=== PATIENT | female | born 1980 | race Caucasian/White ===

== ENCOUNTER → 2022-08-03 23:13 | Outpatient (CLI) | payer MEDICAID, SELFPAY ==
[2022-08-03 18:50] LABS: Basophils # 0.1 K/mm3 (0-0.2); Basophils % 0.9 % (0.1-2.0); Eosinophils # 0.5 K/mm3 (0.0-0.4); Eosinophils % 4.9 % (0.1-12.0); Hematocrit 43.2 % (37.0-47.0); Hemoglobin 14.3 g/dL (12.2-16.2); Lymphocytes # 2.1 K/mm3 (0.7-4.5); Mean Corpuscular Hemoglobin 30.7 pg (27.0-31.2); Mean Corpuscular Volume 92.9 fl (81-99); Mean Platelet Volume 9.1 fl (7.4-10.4); Monocytes # 0.8 K/mm3 (0.1-1.0); Monocytes % 8.4 % (1.7-9.3); Neutrophils # 5.8 K/mm3 (1.8-7.8); Neutrophils % 62.8 % (37.0-80.0); Platelet Count 324 K/mm3 (142-424); Red Blood Count 4.64 M/mm3 (4.20-5.40); Red Cell Distribution Width 12.3 % (11.5-17.5); White Blood Count 9.2 K/mm3 (4.8-10.8)
[2022-08-03 18:53] LABS: Alanine Aminotransferase 43 U/L (12-78); Albumin Level 4.4 g/dl (3.5-5.0); Albumin/Globulin Ratio 1.4 (1.1-1.8); Alkaline Phosphatase 93 U/L (38-126); Anion Gap 15.2 mEq/L (5-15); Aspartate Amino Transferase 34 U/L (14-36); Bilirubin,Total 0.5 mg/dl (0.2-1.3); Blood Urea Nitrogen 13 mg/dl (7-17); Calcium 9.3 mg/dl (8.4-10.2); Carbon Dioxide 28 mmol/L (22.0-30.0); Chloride 99 mmol/L (98-107); Chol/HDL Ratio 4.6 (1-3.5); Cholesterol 300 mg/dl (140-200); Estimated Glomerular Filt Rate 111 ml/min (>60); GFR (African American) 134 ML/MIN (>60); Globulin 3.1 g/dL (1.3-3.2); Glucose 85 mg/dl (74-100); HDL Cholesterol 65 mg/dl (40-60); Potassium 4.2 mmoL/L (3.5-5.1); Sodium 138 mmol/L (136-145); Total Protein,Serum 7.5 g/dl (6.3-8.2); Triglycerides 147 mg/dl (30-150); VLDL Cholesterol 29 mg/dL (0-40)
[2022-08-03 19:07] LABS: Hemoglobin A1C 5.1 % (4.0-6.0)
[2022-08-03 19:08] LABS: C-Reactive Protein 4.7 mg/L (0-4); Direct LDL Cholesterol 176.75 mg/dL (100-129)
[2022-08-03 19:12] LABS: 25-OH Vitamin D, Total 18.1 ng/mL (30-100)
[2022-08-03 19:43] LABS: Vitamin B12 362 pg/mL (239-931)
[2022-08-03 20:57] LABS: Erythrocyte Sedimentation Rate 18 mm/hr (0-20)
[2022-08-07 15:29] LABS: EBV Ab VCA, IgG >600.0 U/mL (0.0-17.9); EBV Ab VCA, IgM <36.0 U/mL (0.0-35.9)
== END ==
PROVIDERS: PCP Nurse Practitioner; Visit Provider Nurse Practitioner
DX: R53.83 Other fatigue (principal); R63.5 Abnormal weight gain; E55.9 Vitamin D deficiency, unspecified
CPT/HCPCS: 80053; 80061; 82306; 82607; 83036; 84443; 85025; 85651; 86140; 86664; 86665

== ENCOUNTER 2023-02-09 18:04 | Emergency (ER) | payer MEDICAID, SELFPAY ==
[2023-02-09 18:10] VITALS: BP 128/93; PULSE 92; RESP 20; TEMP 37.2; O2SAT 95; BMI 33.7
--- NOTE | 2023-02-09 18:14 | ED_ITS ---
Discharge Plan Disposition Patient Disposition: Home, Self-Care Condition: Good Prescriptions Prescriptions: New methylprednisolone 4 mg Tablets,Dose Pack 4 mg PO DIRECTED 6 Days Qty: 21 0RF Rx Instructions: Take 1 pack as directed for 6 days promethazine-DM 6.25-15 mg/5 mL Syrup 5 ml PO Q6H PRN (Reason: Cough) Qty: 240 0RF amoxicillin-pot clavulanate 875-125 mg Tablet 1 tab PO Q12H Qty: 20 0RF No Action semaglutide 0.25 mg or 0.5 mg (2 mg/3 mL) pen injector 0.25 mg SQ WEEKLY Rx Instructions: for 4 weeks Mirena 21 mcg/24 hours (8 yrs) 52 mg intrauterine device 1 device intrauterine ONCE prednisone 20 mg tablet 20 mg PO .COMPLEX Qty: 15 0RF Rx Instructions: 20 mg orally BID x 5 days then daily x 5 days cefdinir 300 mg capsule 300 mg PO BID Qty: 20 0RF cybhvztogtkvbow-bsbtcgwua-UN [Bromfed DM] 2-30-10 mg/5 mL syrup 5 ml PO Q4-6H PRN (Reason: cold symptoms) Qty: 240 0RF albuterol sulfate 90 mcg/actuation HFA aerosol inhaler 2 puff inhalation Q4-6H PRN (Reason: shortness of breath or wheezing) Qty: 8.5 0RF phentermine 37.5 mg Tablet 37.5 mg PO DAILY Rx Instructions: must administer 30 minutes before or 1-2 hours after breakfast Referrals Follow up/Referrals: Nevin Nj APRN [Primary Care Provider] - See instructions Activity Restrictions/Add. Instructions Additional Instructions/Restrictions: Drink plenty of fluids. Take tylenol or ibuprofen for pain or fever. Stop the cefdinir that you are on and start the new antibiotic (amoxicillin/clavulanate). Start the oral steroids (methyprednisone) in the morning since you had the shot here today. Follow up with your regular doctor. GO TO THE ER FOR ANY WORSENING SYMPTOMS The cough medication (promethazine dm) will make you drowsy, so don't drive or operate heavy machinery after taking it. Clinical Impressions Clinical Impression: Acute bronchitis Instructions Patient Instructions: DI for Acute Bronchitis, Ceftriaxone Injection, Dexamethasone Injection Discharge ED Provider: Jagdeep Kruse [facility] HPI General Stated complaint: congestion, cough Time Seen by Provider: 02/09/23 18:14 History of Present Illness Provider Complaint: She states that for the past 5 days she has had chest congestion, sinus congestion, fever, chills, and malaise. She saw her pcp when her symptoms began and she was prescribed cefdinir. She states that she is not feeling any better since starting the medication. Related Data Home Medications Medication Instructions Recorded Confirmed levonorgestrel 21 mcg/24 hours (8 1 device intrauterine ONCE 11/09/22 02/09/23 yrs) 52 mg intrauterine device (Mirena) semaglutide 0.25 mg or 0.5 mg (2 0.25 mg SQ WEEKLY 01/02/23 02/09/23 mg/3 mL) subcutaneous pen injector phentermine 37.5 mg tablet 37.5 mg PO DAILY 02/09/23 02/09/23 Previous Rx's Medication Instructions Recorded albuterol sulfate 90 mcg/actuation 2 puff inhalation Q4-6H PRN 02/06/23 aerosol inhaler shortness of breath or wheezing #8.5 grams vvawlqqqhycefuu-cxvproxsisztzsv-OD 5 ml PO Q4-6H PRN cold symptoms 02/06/23 2 mg-30 mg-10 mg/5 mL oral syrup #240 mL (Bromfed DM) cefdinir 300 mg capsule 300 mg PO BID #20 caps 02/06/23 prednisone 20 mg tablet 20 mg PO .COMPLEX #15 tabs 02/06/23 amoxicillin 875 mg-potassium 1 tab PO Q12H #20 tabs 02/09/23 clavulanate 125 mg tablet methylprednisolone 4 mg tablets in 4 mg PO DIRECTED 6 days #21 tabs 02/09/23 a dose pack promethazine-DM 6.25 mg-15 mg/5 mL 5 ml PO Q6H PRN Cough #240 mL 02/09/23 oral syrup Allergies Allergy/AdvReac Type Severity Reaction Status Date / Time No Known Allergies Allergy Verified 02/06/23 14:28 [facility] Disclaimer: The information contained in this section may have been updated after the patient was seen, as this information can be updated by other users. Medical History Encounter for insertion of mirena IUD 12/05/22 Fatigue Weight gain Surgical History No significant past surgical history Family History Other Cancer Coronary artery disease Diabetes FHx: mental illness Heart attack Hyperlipidemia Hypertension Stroke Substance abuse Social History Smoking Status: Never smoker alcohol intake: never substance use type: marijuana current occupational status: employed Travel in the last 8 weeks: None ROS Obtained: Yes All systems reviewed & no additional complaints except as documented Constitutional Constitutional: Reports chills and Reports fever(s) Eyes Eyes: Denies eye discharge ENT Ears, Nose, Mouth, and Throat: Reports as per HPI Cardiovascular Cardiovascular: Denies chest pain Respiratory Respiratory: Denies shortness of breath, Reports chest congestion, Reports cough, Denies stridor and Denies wheezing Gastrointestinal Gastrointestingal: Reports nausea; Denies abdominal pain, constipation, cr amping, diarrhea or vomiting Musculoskeletal Musculoskeletal: Denies arthralgias Integumentary/Breasts Skin/Breast: Denies rash Neurologic Neurologic: Denies paresthesias Allergic/Immunologic Allergic/Immunologic: Denies wheezing Physical Exam General General appearance: alert and in no apparent distress Eye Eye exam: Present normal appearance, PERRL and EOMI ENT ENT exam: Present mucous membranes moist and normal external ear exam Expanded ENT Exam External ear exam: Present normal external inspection TM/Canal exam: Bilateral TM: erythema and bulging Nose exam: Absent sinus tenderness Nasal speculum exam: Bilateral: normal Mouth exam: Present normal external inspection; Absent drooling Teeth exam: Present normal inspection Throat exam: Present tonsillar erythema and tonsillomegaly Neck Neck exam: Present normal inspection, full ROM and trachea midline; Absent tenderness, lymphadenopathy or thyromegaly Chest Chest inspection: Present normal inspection and symmetric chest wall rise; Absent tenderness or rash Respiratory Respiratory exam: Present normal lung sounds bilaterally; Absent respiratory distress, wheezes, stridor or accessory muscle use Cardiovascular Cardiovascular exam: Present regular rate, normal rhythm and normal heart sounds Abdominal Exam Abdominal exam: Present soft; Absent distention, tenderness, guarding, rebound or rigidity Extremities Exam Extremities exam: Present normal inspection, full ROM and normal capillary refill; Absent tenderness or calf tenderness Back Exam Back exam: Present normal inspection and full ROM; Absent tenderness Neurological Exam Neurological exam: Present alert and oriented X3 Psychiatric Psychiatric exam: Present normal affect and normal mood Skin Skin exam: Present warm, dry, intact and normal color Lymphatic Lymphatic Findings: no adenopathy Medical Decision Making Medical Records Medical records reviewed: No I reviewed the patient's medical records. Jonah Inquiry Pt receiving controlled substance: No Lab Data Lab results reviewed: Yes I reviewed the patient's lab results.
--- NOTE | 2023-02-09 18:17 | XR_ITS ---
PROCEDURE INFORMATION: Exam: XR Chest Exam date and time: 02/09/2023 6:17 PM Age: 42 years old Clinical indication: Cough TECHNIQUE: Imaging protocol: Radiologic exam of the chest. Views: 2 views. COMPARISON: No relevant prior studies available. FINDINGS: Lungs: Unremarkable. No consolidation. Pleural spaces: Unremarkable. No pleural effusion. No pneumothorax. Heart/Mediastinum: Unremarkable. No cardiomegaly. Bones/joints: Unremarkable. Soft tissues: Bilateral nipple adornments. IMPRESSION: No acute findings.
[2023-02-09] MEDS: LIDOCAINE 1% 5ML PF VIAL IM (19:17)
[2023-02-09] MEDS: cefTRIAXone 1GM VIAL 1 GM IM (19:17)
[2023-02-09] MEDS: DEXAMETHASONE 4MG/ML 1ML VIAL 8 MG IM (19:17)
[2023-02-09 19:23] VITALS: BP 128/93; PULSE 92; RESP 20; TEMP 37.2; O2SAT 95
== END 2023-02-09 19:37 | disposition home or self-care (01) ==
PROVIDERS: Emergency Provider Nurse Practitioner Family; PCP Nurse Practitioner
DX: J20.9 Acute bronchitis, unspecified (principal); R50.9 Fever, unspecified; R09.89 Other specified symptoms and signs involving the circulatory and respiratory systems; R09.81 Nasal congestion; R53.81 Other malaise
CPT/HCPCS: 71046; 87635; 96372; 99204; 99212; G0463; J0696

== ENCOUNTER 2023-06-21 08:12 | Outpatient (CLI) | payer MEDICAID, SELFPAY ==
--- NOTE | 2023-06-21 08:19 | MM_ITS ---
PROCEDURE INFORMATION: Exam: MG Bilateral Screening 3D Mammography Exam date and time: 06/21/2023 8:10 AM Age: 43 years old Clinical indication: Screening examination TECHNIQUE: Imaging protocol: Bilateral Screening tomosynthesis and 2D mammography including computer-aided detection (CAD) when performed. COMPARISON: No relevant prior studies available. FINDINGS: MAMMOGRAPHY: Breast composition: There are scattered areas of fibroglandular density. Mass: None. Architectural distortion: None. Calcifications: No suspicious calcifications. Asymmetric density: Nonspecific tissue asymmetry measuring approximately 2.6 cm in the posterior right upper outer quadrant Skin thickening: None. Axillary adenopathy: None. IMPRESSION: Patient to be recalled for spot compression views of the right breast in the CC and MLO projections, a full 90 degree lateral view, and possible right breast ultrasound for further evaluation of a right breast asymmetry. ASSESSMENT: BI-RADS Category 0: Incomplete- Need Additional Imaging Evaluation and/or Prior Mammograms for Comparison.
== END 2023-06-21 23:59 | disposition home or self-care (01) ==
LOC: RAD 08:13
PROVIDERS: PCP Nurse Practitioner; Visit Provider Obstetrics & Gynecology
DX: Z12.31 Encounter for screening mammogram for malignant neoplasm of breast (principal)
CPT/HCPCS: 77063; 77067

== ENCOUNTER 2023-07-05 14:04 | Outpatient (CLI) | payer MEDICAID, SELFPAY ==
--- NOTE | 2023-07-05 14:05 | MM_ITS ---
PROCEDURE INFORMATION: Exam: US Right Breast, Complete MG Right Diagnostic Breast Tomosynthesis Exam date and time: 07/05/2023 1:56 PM Age: 43 years old Clinical indication: Recall the basis of screening mammogram 06/22/2023 for further evaluation of nonspecific tissue asymmetry measuring approximately 2.6 cm in the posterior right upper outer quadrant. TECHNIQUE: Imaging protocol: Complete ultrasound of all four quadrants of the right breast and the retroareolar regions, including ultrasound of the axilla when performed. Right Diagnostic tomosynthesis and 2D mammography including computer-aided detection (CAD) when performed. Unilateral or bilateral exam. COMPARISON: MG MM DIG SCREENING MAMM BI W/CAD 06/21/2023 8:10 AM FINDINGS: MAMMOGRAPHY: Breast composition: There are scattered areas of fibroglandular density based on the most recent screening mammogram report. Breast mammogram findings: Spot compression at the asymmetry shows patchy tissue with interspersed fat. No suspicious mass or suspicious focal asymmetry. ULTRASOUND: Breast ultrasound findings: Right sonography, all 4 quadrants, retroareolar and axilla. At 7 o'clock 3 cm from the nipple, probable complicated cyst with thin avascular septation measuring 0.5 x 0.3 x 0.4 cm. At 10 o'clock 9 cm from the nipple, hyperechoic superficial masslike area annotated at 0.8 x 0.7 x 0.3 cm. Unremarkable image of the axilla. IMPRESSION: Screening recall the asymmetry in the right upper outer quadrant demonstrates persistent mammographic patchy tissue with interspersed fat and possibly a related sonographic lipoma at 10 o'clock. Clinical correlation to this quadrant is advised, and if negative clinically, suggest six-month follow-up right diagnostic mammography and sonography, unless otherwise clinically indicated. Probably benign cystic change at 7 o'clock, suggest six-month follow-up right sonography unless otherwise clinically indicated. ASSESSMENT: BI-RADS Category 3: Probably benign.
== END 2023-07-05 23:59 | disposition home or self-care (01) ==
LOC: RAD 14:05
PROVIDERS: PCP Nurse Practitioner; Visit Provider Obstetrics & Gynecology
DX: R92.8 Other abnormal and inconclusive findings on diagnostic imaging of breast (principal)
CPT/HCPCS: 76641; 77061; 77065; G0279

== ENCOUNTER 2024-01-07 13:00 | Outpatient (CLI) | payer MEDICAID, SELFPAY ==
--- NOTE | 2024-01-07 13:02 | MM_ITS ---
PROCEDURE INFORMATION: Exam: US Right Breast, Complete MG Right Diagnostic Breast Tomosynthesis Exam date and time: 01/07/2024 1:28 PM Age: 43 years old Clinical indication: Follow-up from prior for probably benign right breast mass. TECHNIQUE: Imaging protocol: Complete ultrasound of all four quadrants of the right breast and the retroareolar regions, including ultrasound of the axilla when performed. Right Diagnostic tomosynthesis and 2D mammography including computer-aided detection (CAD) when performed. Unilateral or bilateral exam. COMPARISON: US BREAST RT COMPLETE 07/05/2023 2:33 PM FINDINGS: MAMMOGRAPHY: Breast composition: There are scattered areas of fibroglandular density. Breast mammogram findings: Right breast CC and MLO tomosynthesis views as well as spot compression tomosynthesis views were obtained. Unchanged asymmetry strongly favored to represent normal overlapping fibroglandular tissue in the upper-outer right breast at posterior depth.Elsewhere, there are no suspicious masses or calcifications in the partially visualized breast. No abnormal lymph nodes in the partially visualized axilla. ULTRASOUND: Breast ultrasound findings: Right breast ultrasound: Redemonstrated benign simple cyst at 7 o'clock, 4 cm from the nipple measuring 0.5 cm. This previously appeared slightly complicated but no appears entirely cystic compatible with benignity. At 10 o'clock, 9 cm from the nipple there is again seen a echogenic parallel circumscribed oval region which may represent normal interspersed fat or a lipoma. No abnormal lymph nodes in the axilla IMPRESSION: 1. Stable right breast mass at 10 o'clock is probably benign. Recommend six-month follow-up right breast ultrasound to ensure stability. The patient will be due for screening mammography at that time. 2. Benign cyst in the right breast at 7 o'clock which requires no further dedicated follow-up. ASSESSMENT: BI-RADS Category 3: Probably benign.
== END 2024-01-07 23:59 | disposition home or self-care (01) ==
LOC: RAD 13:02
PROVIDERS: PCP Nurse Practitioner; Visit Provider Obstetrics & Gynecology
DX: R92.8 Other abnormal and inconclusive findings on diagnostic imaging of breast (principal)
CPT/HCPCS: 76641; 77061; 77065; G0279

== ENCOUNTER 2024-07-03 10:04 | Outpatient (CLI) | payer MEDICAID, SELFPAY ==
--- NOTE | 2024-07-03 10:00 | MM_ITS ---
PROCEDURE INFORMATION: Exam: MG Bilateral Diagnostic Breast Tomosynthesis MG Bilateral Diagnostic Mammography Exam date and time: 07/03/2024 10:17 AM Age: 44 years old Clinical indication: Six-month follow-up for probably benign asymmetry in the right upper outer quadrant, initiated 07/05/2023 and right breast pain. No family history of breast cancer. TECHNIQUE: Imaging protocol: Bilateral Diagnostic tomosynthesis and 2D mammography including computer-aided detection (CAD) when performed. Unilateral or bilateral exam. Diagnostic mammography of the bilateral breasts including computer-aided detection (CAD) when performed. Bilateral exam. COMPARISON: 1. MG MM DIG MAMM DX UNILAT RT CAD 01/07/2024 12:47 PM 2. MG MM DIG MAMM DX UNILAT RT CAD 07/05/2023 1:56 PM 3. MG MM DIG SCREENING MAMM BI W/CAD 06/21/2023 8:10 AM 4. US BREAST RT COMPLETE 01/07/2024 1:28 PM FINDINGS: MAMMOGRAPHY: Breast mammogram findings: Breast composition: There are scattered areas of fibroglandular density. Mass: No suspicious mass. Architectural distortion: None. Calcifications: No suspicious calcifications. Asymmetric density: Stable patchy asymmetry with interspersed fat in the right upper outer quadrant compared to 06/21/2023. Skin thickening: None. Axillary adenopathy: None. Other: Bilateral nipple rings. IMPRESSION: See comments Stable patchy asymmetry in the right upper outer quadrant, initiated 06/21/2023, suggest continued six-month follow up right diagnostic mammogram unless otherwise clinically indicated. Regarding right pain, note that sonography unless same-day indicated no sonographic findings at the area of pain at 10 o'clock. Further evaluation of a painful abnormality should be based on clinical grounds regardless of radiographic findings or lack thereof. Sonography report notes probably benign cystic changes on the right advise six-month follow-up by ultrasound as well. ASSESSMENT: BI-RADS Category 3: Probably benign.
--- NOTE | 2024-07-03 11:00 | US_ITS ---
PROCEDURE INFORMATION: Exam: US Right Breast, Complete Exam date and time: 07/03/2024 10:40 AM Age: 44 years old Clinical indication: History of right breast pain and six-month follow-up for probably benign mass on the right at 10 o'clock initiated 07/05/2023. TECHNIQUE: Imaging protocol: Complete ultrasound of all four quadrants of the right breast and the retroareolar regions, including ultrasound of the axilla when performed. COMPARISON: US BREAST RT COMPLETE 01/07/2024 1:28 PM MG MM DIG MAMM DX UNILAT RT CAD 01/07/2024 12:47 PM US BREAST RT COMPLETE 07/05/2023 2:33 PM MG MM DIG MAMM DX UNILAT RT CAD 07/05/2023 1:56 PM MG MM DIG SCREENING MAMM BI W/CAD 06/21/2023 8:10 AM FINDINGS: ULTRASOUND: Breast ultrasound findings: Right sonography, all 4 quadrants, retroareolar and axilla. At 7 o'clock 3 cm from the nipple, oval hypoechoic avascular mass measuring 0.5 x 0.2 x 0.4 cm which measures 0.5 x 0.3 x 0.4 cm on 07/05/2023. In the upper outer quadrant and at 10 o'clock 5 cm from the nipple, annotated as area of pain, no sonographic findings demonstrated. Though no image annotated at 10 o'clock 9 cm from the nipple, technologist notes that no findings seen on today's exam at that location. Sonographically unremarkable axillary lymph node. IMPRESSION: See comments No sonographic findings at area of pain on the right at 10 o'clock 5 cm from the nipple. There is notation regarding a mammogram performed on 07/03/2024, but no images or report are available. With negative sonography for pain, correlation with mammography is advised.Further evaluation of a palpable abnormality should be based on clinical grounds regardless of radiographic findings or lack thereof. Previously described mammographic mass at 10 o'clock 9 cm from the nipple is not imaged, reported as negative, suggest six-month follow-up right sonography unless otherwise clinically indicated. Stable benign-appearing cystic change 7 o'clock. ASSESSMENT: BI-RADS Category 3: Probably benign.
== END 2024-07-03 23:59 | disposition home or self-care (01) ==
LOC: RAD 10:05
PROVIDERS: PCP Nurse Practitioner; Visit Provider Obstetrics & Gynecology
DX: N63.13 Unspecified lump in the right breast, lower outer quadrant (principal); N64.4 Mastodynia; R92.8 Other abnormal and inconclusive findings on diagnostic imaging of breast
CPT/HCPCS: 76641; 77062; 77066; G0279

== ENCOUNTER 2025-01-29 14:26 | Outpatient (CLI) | payer MEDICAID, SELFPAY ==
--- NOTE | 2025-01-29 14:30 | MM_ITS ---
PROCEDURE INFORMATION: Exam: US Right Breast, Complete MG Bilateral Diagnostic Breast Tomosynthesis Exam date and time: 01/29/2025 2:54 PM Age: 44 years old Clinical indication: Follow-up of findings in the right breast. TECHNIQUE: Imaging protocol: Complete ultrasound of all four quadrants of the right breast and the retroareolar regions, including ultrasound of the axilla when performed. Bilateral Diagnostic tomosynthesis and 2D mammography including computer-aided detection (CAD) when performed. Unilateral or bilateral exam. COMPARISON: US BREAST RT COMPLETE 07/03/2024 10:40 AM FINDINGS: MAMMOGRAPHY: Breast composition: There are scattered areas of fibroglandular density. Breast mammogram findings: No stellate mass, architectural distortion, or suspicious microcalcifications to suggest malignancy. No skin thickening or axillary adenopathy. ULTRASOUND: Breast ultrasound findings: There is no underlying solid or cystic abnormality, area of architectural distortion, or acoustical shadowing. No suspicious finding in the 10 o'clock axis, 9 cm from the nipple. IMPRESSION: 1. No mammographic or sonographic evidence of malignancy. 2. Annual bilateral mammographic screening is recommended unless otherwise clinically indicated. ASSESSMENT: BI-RADS Category 1: Negative.
--- OUTSIDE RECORDS SUMMARY | 2025-01-29 14:33 | XMS_ITS | Clinical Summary ---
Author Organization what3words [facility] Address [address] [place] [id number] Phone Care Team Providers Care Pillowcase Cutter Name Role Phone Leónsheree Rozina MENENDEZ Primary Care Physician [phone] Conditions or Problems Problem Name Problem Code Onset Date Status Entry Date Provider Comment Standard Description Annotate High risk meds half-way use 889378186 (SNOMED CT) 08/31 Active 08/31 Megan Schmitz CANDY ROLLING MACHINE OPERATOR Long-term drug therapy Binge eating disorder 911539822 (SNOMED CT) Active Yamilet Sotelo APRN Binge eating disorder Conjunctivi tis acute--Lt 01977723 (SNOMED CT) 07/21 Inactive 07/21 Steve De La Torre MD Acute conjunctivitis Generalized anxiety disorder 64351800 (SNOMED CT) 02/16 Active 02/16 Yamilet Sotelo APRN Generalized anxiety disorder Attention deficit disorder 84904127 (SNOMED CT) 02/16 Active 02/16 Yamilet Sotelo APRN Attention deficit hyperactivity disorder, predominantly inattentive type SINUSITIS ACUTE 86820689 (SNOMED CT) Inactive Wendi Qureshi APRN Acute sinusitis VAN LOADER EXAM 19554739 (SNOMED CT) 10/03 Inactive 10/03 Yanira Goss APRN Gynecologic examination NIPPLE DISCHARGE 60947959 (SNOMED CT) 10/03 Active 10/03 Yanira Goss APRN Discharge from nipple INTRAUTERIN E CONTRACEPTI VE DEVICE SURVEILLANC E 250199805 (SNOMED CT) 10/03 Active 10/03 Yanira Goss APRN Surveillance of intrauterine device contraception F/U Z39.2 (ICD-10-CM ) 10/23 Resolved 10/23 Yanira Goss APRN Encounter for routine follow-up STD SCREENING 033314799 (SNOMED CT) 10/03 Inactive 10/23 Yanira Goss APRN Venereal disease screening ENC FOR INSERTION INTRAUTERIN E CONTRACEPT DEVICE Z30.430 (ICD-10-CM ) 11/09 Resolved 11/09 Yanira Goss APRN Encounter for insertion of intrauterine contraceptive device Mirena NECK PAIN 67794297 (SNOMED CT) 06/23 Active 06/23 Wendi Uqreshi INSPECTOR FINISHING Neck pain ALOPECIA 28694767 (SNOMED CT) 06/23 Active 06/23 Wendi Qureshi INSPECTOR FINISHING Alopecia OBSESSIVE-C OMPULSIVE DISORDERS 506492980 (SNOMED CT) 04/28 Active 04/28 Wendi Qureshi INSPECTOR FINISHING Obsessive-compu lsive disorder ANXIETY STATE NOS 284132413 (SNOMED CT) 04/28 Active 04/28 Wendi Qureshi INSPECTOR FINISHING Anxiety state HERPES ZOSTER 3909302 (SNOMED CT) 11/11 Active 11/11 Wendi Qureshi INSPECTOR FINISHING Herpes zoster ENC FOR INSERTION INTRAUTERIN E CONTRACEPT DEVICE Z30.430 (ICD-10-CM ) 11/09 Removed 11/09 Dena Pizano CNM Encounter for insertion of intrauterine contraceptive device Mirena LARGE FOR GESTATIONAL AGE 396479535 (SNOMED CT) 08/23 Resolved 08/23 Dena Pizano CNM Large for gestation age fetus NORMAL OTHER V22.1 (ICD-9-CM) 03/21 Resolved 03/21 Dena Pizano CNM Supervision of other normal CONTRACEPTI VE MGMT Z30.40 (ICD-10-CM ) 11/08 Active 11/08 Lizz Gillespie RN Encounter for surveillance of contraceptives, unspecified STD SCREENING 861742764 (SNOMED CT) 10/23 Correction 10/23 Pamela Fraga INSPECTOR FINISHING Venereal disease screening F/U Z39.2 (ICD-10-CM ) 10/23 Removed 10/23 Pamela Levinor INSPECTOR FINISHING Encounter for routine follow-up LARGE FOR GESTATIONAL AGE 147355666 (SNOMED CT) 08/23 Removed 08/23 Pamela Barr INSPECTOR FINISHING Large for gestation age fetus NORMAL OTHER V22.1 (ICD-9-CM) 03/21 Removed 03/21 Ghazala Ornelas MA Supervision of other normal Medications Medication Instructions Start Date Stop Date Generic Name NDC Provider ADDERALL 30 MG TABS TAKE 1 TABLET 2 TIMES A DAY, MAY TAKE 1/2 TABLET IN AFTERNOON AMPHETAMINE-DEXTRO AMPHETAMINE [id number] Megan Schmitz CANDY ROLLING MACHINE OPERATOR EFFEXOR XR 150 MG [id number] TAKE 1 CAPSULE EVERY MORNING VENLAFAXINE HCL 45279296781 Megan Schmitz CANDY ROLLING MACHINE OPERATOR WELLBUTRIN XL 150 MG [id number] TAKE 1 TABLET BY MOUTH EVERY MORNING 05/31 BUPROPION HCL 56661024177 Yamiletrita Sotelo INSPECTOR FINISHING ADDERALL 20 MG TABS TAKE 1 TABLET 2 TIMES A DAY. MAY TAKE 1 TABLET EVERY AFTERNOON NEEDED. AMPHETAMINE-DEXTRO AMPHETAMINE 71366123810 Yamilet Ashleigh INSPECTOR FINISHING VYVANSE 50 MG CAPS TAKE 1 CAPSULE BY MOUTH EVERY MORNING LISDEXAMFETAMINE DIMESYLATE 12514305726 Yamilet Ashleigh INSPECTOR FINISHING VYVANSE 50 MG CAPS TAKE 1 CAPSULE BY MOUTH EVERY MORNING LISDEXAMFETAMINE DIMESYLATE 56180003431 Yamiletrita Sotelo INSPECTOR FINISHING ADDERALL 20 MG TABS Take 1 twice a day and may take 1 extra if needed daily. AMPHETAMINE-DEXTRO AMPHETAMINE 44745795593 Yamilet Ashleigh INSPECTOR FINISHING ADDERALL 20 MG TABS TAKE 1 TABLET BY MOUTH 2 TIMES A DAY, TAKE 1 TABLET IN AFTERNOON NEEDED 10/15 AMPHETAMINE-DEXTRO AMPHETAMINE 55556341518 Yamilet Ashleigh INSPECTOR FINISHING EFFEXOR XR 75 MG [id number] TAKE 2 CAPSULE BY MOUTH ONCE A DAY 0 10/15 VENLAFAXINE HCL 71529626875 Yamilet Sotelo APRN EFFEXOR XR 75 MG [id number] TAKE 2 CAPSULE BY MOUTH ONCE A DAY VENLAFAXINE HCL 00025031873 Megan Schmitz CANDY ROLLING MACHINE OPERATOR ADDERALL 20 MG TABS Take 1 twice a day and may take 1 extra if needed daily. AMPHETAMINE-DEXTRO AMPHETAMINE 13762684072 Yamilet Momelissa MENENDEZ CILOXAN 0.3 % OPHTHALMIC SOLUTION INSTILL 1 DROP INTO AFFECTED EYE Q4H X 5 DAYS 07/28 CIPROFLOXACIN HCL 67148923991 Steve De La Torre MD WELLBUTRIN XL 150 MG [id number] TAKE 1 TABLET BY MOUTH EVERY MORNING BUPROPION HCL 68316931257 Yamilet Momelissa MENENDEZ ADDERALL 20 MG TABS TAKE 1 TABLET BY MOUTH 2 TIMES A DAY, TAKE 1 TABLET IN AFTERNOON NEEDED AMPHETAMINE-DEXTRO AMPHETAMINE 47937350240 Yamilet Sotelo INSPECTOR FINISHING VENLAFAXINE HCL ER 75 MG [id number] TAKE 2 TABLETS BY MOUTH EVERY MORNING VENLAFAXINE HCL 45718334138 Yamiletrita Momelissa MENENDEZ ADDERALL 20 MG TABS TAKE 1 TABLET BY MOUTH 2 TIMES A DAY, TAKE 1 TABLET IN AFTERNOON NEEDED AMPHETAMINE-DEXTRO AMPHETAMINE 53711484560 Yamilet Sotelo INSPECTOR FINISHING ADDERALL 20 MG TABS TAKE 1 TABLET BY MOUTH 2 TIMES A DAY AMPHETAMINE-DEXTRO AMPHETAMINE 32378094231 Yamiletrita Sotelo APRN VENLAFAXINE HCL ER 75 MG [id number] TAKE 1 TABLET BY MOUTH EVERY MORNING VENLAFAXINE HCL 68475261177 Yamiletrita Momelissa MENENDEZ ADDERALL 10 MG TABS TAKE 1 TABLET BY MOUTH 2 TIMES A DAY AMPHETAMINE-DEXTRO AMPHETAMINE 04748904973 Yamiletrita Momelissa MENENDEZ BUSPIRONE HCL 10 MG TABS TAKE 1 TABLET BY MOUTH TWICE A DAY BUSPIRONE HCL 07409027822 Wendi Qureshi APRN PAROXETINE HCL 20 MG TABS TAKE 1 TABLET BY MOUTH ONCE A DAY PAROXETINE HCL 65665103049 Wendi Qureshi INSPECTOR FINISHING PREDNISONE 10 MG TABS 4 BY MOUTH EVERY DAY FOR 3 DAYS; 3 BY MOUTH EVERY DAY FOR 3 DAYS; 2 PO BY MOUTH FOR 3 DAYS; 1 BY MOUTH FOR 3 DAYS PREDNISONE 17833331500 Wendi Qureshi INSPECTOR FINISHING AUGMENTIN 875-125 MG ORAL TABLET TAKE 1 BY MOUTH TWO TIMES A DAY 02/17 AMOXICILLIN-POT CLAVULANATE 24735668311 Wendi Qureshi INSPECTOR FINISHING PREDNISONE 10 MG TABS 4 BY MOUTH EVERY DAY FOR 3 DAYS; 3 BY MOUTH EVERY DAY FOR 3 DAYS; 2 PO BY MOUTH FOR 3 DAYS; 1 BY MOUTH FOR 3 DAYS PREDNISONE 68351291534 Wendi Qureshi INSPECTOR FINISHING PAROXETINE HCL 20 MG TABS TAKE 1 TABLET BY MOUTH ONCE A DAY PAROXETINE HCL 13476084749 Wendi Qureshi INSPECTOR FINISHING PAROXETINE HCL 10 MG TABS TAKE 1 TABLET BY MOUTH ONCE A DAY PAROXETINE HCL 25977392380 Wendi Qureshi INSPECTOR FINISHING BUSPIRONE HCL 10 MG TABS TAKE 1 TABLET BY MOUTH TWICE A DAY BUSPIRONE HCL 34533721582 Wendi Qureshi INSPECTOR FINISHING AMITRIPTYLINE HCL 50 MG TABS TAKE 1 TABLET BY MOUTH AT BEDTIME. CAN INCREASE TO 2 TABS AFTER 5-7 DAYS AMITRIPTYLINE HCL 89154940912 Wendi Qureshi INSPECTOR FINISHING PREDNISONE 20 MG TABS TAKE 3 TABS FOR 2 DAYS, 2 TABS FOR 2 DAYS, 1 TAB FOR 2 DAYS, THEN 1/2 TAB FOR 2 DAYS PREDNISONE 67382704133 Wendi Qureshi INSPECTOR FINISHING ACYCLOVIR 800 MG TABS Take 1 tablet by mouth 5 times a day. ACYCLOVIR 32774313384 Wendi Qureshi INSPECTOR FINISHING MIRENA (52 MG) 20 MCG/24HR INTRAUTERINE INTRAUTERINE DEVICE 1 DEVICE LEVONORGESTREL 92006353624 Pamela Philly INSPECTOR FINISHING PROMETHAZINE HCL 25 MG TABS one po q 8 prn 2012/0 10/23 PROMETHAZINE HCL 71958614339 Pamela Levinor INSPECTOR FINISHING PROMETHAZINE HCL 25 MG TABS one po q 8 prn PROMETHAZINE HCL 93753965491 Stefania Mendoza MD Medications Administered No information available. Allergies, Adverse Reactions, Alerts Allergy Name Reaction Description Start Date Severity Statu s Provider DARVOCET Critical Active Ghazala avalos MA Results Date Name Value Unit Range Flag Description Lab Report: OBSTETRIC PANEL, HIV AB, HIV 1/2, EIA, WITH REFLEXES, CULTUR ... HBSAG NON-REACTIVE NON-REACTI N Hepat itis B virus surface Ag [Units/volume] in Serum ABO/RH RH(D) POSITIVE blood type with RH factor ABO BLD GRP A ABO blood group BASO % MANU 0.4 % N basophils as percent of blood leukocytes, manual count EOS % MANU 0.5 % N eosinophil s as percent of blood leukocytes, manual count MONOCYTE % 7.8 % N Monocytes/ 100 leukocytes in Blood by Automated count LYMPH% P BLD 14.1 % N lymphocy patrick as percent of blood leukocytes PMN % 77.2 % N Neutrophils/1 00 leukocytes in Blood by Automated count ABS BASOS 40 {Cells}/ uL 0-200 N Basophils [#/volume] in Blood ABS EOS 50 {Cells}/ uL 15-500 N Eosinophils [#/volume] in Blood ABS MONOS 772 {Cells}/ uL 200-950 N Monocytes [#/volume] in Blood ABSLYMPHCT 1396 {Cells}/ uL 850-3900 N Lymphocytes [#/volume] in Blood ABS NEUTROPH 7643 CELLS/UL 10*3/uL 9913-1578 N Neutrophils [#/volume] in Blood Office Visit: PN f/u LH - wi ll be here at 9:20am rm 3 PH URINE 6.0 pH of Urine by Test strip SPEC GR URIN 1.020 Specific gravity of Urine by Test strip Lab Report: CHLAMYDIA/N. MERVIN ORRHOEAE DNA, SDA GC DNA PROBE NOT DETECTED NOT DETECT N Neisseria gonorrhoeae DNA [Presence] in Unspecified specimen by Probe with signal amplification Lab Report: BANDAR IFA SCREEN W /REFL TO TITER AND PATTERN, IFA, CBC (H/H, R ... ESR 2 mm/h < OR = 20 N Erythrocyte sedimentation rate by Westergren method RA FACTOR 5 [iU]/mL <14 N Rheumatoid factor [Units/volume] in Serum or Plasma SGPT (ALT) 17 U/L 6-29 N Alanine aminotransferase [Enzymatic activity/volume] in Serum or Plasma SGOT (AST) 19 U/L 10-30 N Aspartate aminotransferase [Enzymatic activity/volume] in Serum or Plasma ALK PHOS 76 U/L 33-115 N Alkaline phosphatase [Enzymatic activity/volume] in Blood BILI TOTAL 0.4 mg/dL 0.2-1.2 N Bilirubin. total [Mass/volume] in Serum or Plasma A/G RATIO 2.0 (calc) 1.0-2.5 N Albumin/ Globulin [Mass Ratio] in Serum or Plasma GLOBULIN TOT 2.1 G/DL (CALC) g/dL 1.9-3.7 N Globulin [Mass/volume] in Serum ALBUMIN EOP 4.2 g/dL 3.6-5.1 N Albumin [Mass/volume] in Serum or Plasma by Electrophoresis PROTEIN, TOT 6.3 g/dL 6.1-8.1 N Protein [Mass/volume] in Serum or Plasma CALCIUM 9.0 mg/dL 8.6-10.2 N Calcium [Moles/volume] in Serum or Plasma CO2 27 mmol/L 19-30 N Carbon dioxid e, total [Moles/volume] in Venous blood CHLORIDE BLD 104 mmol/L 98-110 N chloride , blood POTASSIUM 3.8 mmol/L 3.5-5.3 N Potassium [Moles/volume] in Serum or Plasma SODIUM 138 mmol/L 135-146 N Sodium [Moles/volume] in Serum or Plasma BUN/CREAT NOT APPLICABLE (calc) 6-22 Urea nitrogen/Creatinine [Mass Ratio] in Serum or Plasma EGFR 105 mL/min/1 .73m2 >OR = 60 N Glomerular filtration rate/1.73 sq M.predicted [Volume Rate/Area] in Serum, Plasma or Blood by Creatinine-based formula (MDRD) CREATININE 0.76 mg/dL 0.50-1.10 N Creatini ne [Mass/volume] in Serum or Plasma BUN 14 mg/dL 7-25 N Urea nitrogen [Mass/volume] in Serum or Plasma BG RANDOM 83 mg/dL 65-99 N Glucose [Mass/volume] in Blood PLATELETK/UL 228 THOUSAND/UL 10*3/uL 140-400 N platelet count RDW 13.1 % 11.0-15.0 N Erythrocyte distribution width [Ratio] by Automated count OL-MCHC 33.2 g/dL 32.0-36.0 N mean corpus cular hemoglobin concentration, rbc MCH 30.6 pg 27.0-33.0 N MCH [Entiti c mass] by Automated count MCV 92.2 fL 80.0-100.0 N MCV [Entit ic volume] by Automated count HCT 36.5 % 35.0-45.0 N Hematocrit [Volume Fraction] of Blood by Automated count HGB 12.1 g/dL 11.7-15.5 N Hemoglobin [Mass/volume] in Blood RBC M/UL 3.97 MILLION/UL 10*6/uL 3.80-5.10 N red blood count WBC CT BLOOD 5.8 10*3/uL 3.8-10.8 N leukocy te count, blood BANDAR HOMO PAT NEGATIVE NEGATIVE N BANDAR (a ntinuclear antibody) pattern, homogeneous Office Visit: Check up,. Nip ple discharge? -JAR 09/29/13 rm #5 PREG TST URN negative beta HC G, urine, semiquantitative GLUCOSE, URN negative Glucose [Mass/volume] in Urine by Test strip BILIRUBIN UR negative Bilirub in.total [Presence] in Urine by Test strip KETONES URN negative Ketones [Mass/volume] in Urine by Test strip BLOOD UR DIP negative blood i n urine (hemoglobin) by dipstick PROTEIN, URN negative protein , urine, semiquantitative (dipstick) UROBILINOGEN negative Urobili nogen [Presence] in Urine by Test strip NITRITE URN negative Nitrite [Presence] in Urine by Test strip WBC DIPSTK U negative Leukocy te esterase [Presence] in Urine by Test strip Lab Report: PROLACTIN, TSH W /REFLEX TO FT4 TSHREFLX FT4 1.98 m[iU]/L N TSH (thy roid stimulating hormone) with reflex FT4 PROLACTIN 21.0 ng/mL N Prolactin [Mass/volume] in Serum or Plasma Plan of Care Type Date Detail Referral [employer] [facility], [address] [place] [address], [phone] Referral excluded fr om report: Referral [employer] [facility], [address] [place] [address], [phone] Referral Psychiatry Refer [facility] General Pending order Urine Drug Scree n with Confirmation Pending order Never smoker Pending order Medication Recon ciliation Pending order 01898 ESTAB efoc /efoc/low Pending order 91745 ESTAB efoc /efoc/low Pending order SNOMED-CT: 43576 [id number] Current Medications Documented Pending order 54316 ESTAB efoc /efoc/low Pending order 55091 ESTAB efoc /efoc/low Pending order 14245 ESTAB efoc /efoc/low Pending order 42176 ESTAB efoc /efoc/low Pending order Psych Dx Eval WI TH E&M -MD/INSPECTOR FINISHING Only Pending order ThinPrep Pap w r eflex HR HPV/GC/Chlamydia mRNA E6/E7 Pending order Prolactin Panel Pending order TSH to Free T-4 Pending order Urine Dip Manual 26267 Pending order Test 8 1025 Pending order CBC no diff Pending order CMP Pending order TSH reflex to fr ee T4 Pending order BANDAR Pending order Rheumatoid Facto r Quant Pending order Sedimentation Ra te RBC Pending order HCG Qualitative (Outside Lab) Pending order Pap Age age 21+ (Out Order) Pending Order exclud ed from report: Pending order Hemoglobin 22532 Pending order [facility] (Out O rder) Pending order Pap Age age 21+ (Out Order) Pending order GTT 2 Hour Pending order GTT 2 Hour Pending Order exclud ed from report: Pending order Urine Dip Auto 8 1003 Pending order Urine Dip Manual 65301 Pending order Pelvic Ultrasoun d Pending order Urine Dip Auto 8 1003 Pending order Urine Dip Auto 8 1003 Pending order Urine Dip Auto Pending order Urine Dip Auto Pending order Group B Strep (O utside Lab) Pending order G[facility]. [facility]ly (Out O rder) Pending order Urine Dip Auto Pending order Urine Dip Manual Pending order GTT 2 Hour Pending order Urine Dip Auto Pending order Ultrasound Pending order Urine Dip Auto Pending order Urine Dip Manual Pending order Urine Dip Manual Pending order Pap (Out Order) Pending order G.[facility]. Chly (Out O rder) Pending order Panel ( Outside Lab) Pending order Hemoglobin Pending order HIV Antibody (Ou t Order) Pending order Urine Culture (O utside Lab) Pending order Urine Dip Auto Patient education Medications Patient education ACUTE+BACTERIA L+RHINOSINUSITIS Procedures Code Procedure Name Date Entry Date 99670 [facility] # Urine Drug Screen with Confirmation [id number] Never smoker SCT-[id number] Medication Reconciliation SCT-[id number] SNOMED-CT: [id number] 945750 Current Medications Documented cWyze [employer] Social Work CPT-31484 Psych Dx Eval WITH E&M -MD/INSPECTOR FINISHING Only 2013 PSYCH GEN Psychiatry Referral General CPT-42109 Urine Dip Manual 89542 10/03 CPT-77702 Test 38053 746 [facility] Test # Prolactin Panel 27 [facility] Test # TSH to Free T-4 0 10/03 [facility]# 54782 ThinPrep Pap w refle x HR HPV/GC/Chlamydia mRNA E6/E7 809 [facility] Test # Sedimentation Rate RBC 2 4418 [facility] Test # Rheumatoid Factor Quant 249 [facility] Test # BANDAR 59870 [facility] Test # TSH reflex to free T4 69267 [facility] Test # CMP 2 [facility]# 1759 CBC no diff CPT-39096 HCG Qualitative (Outside Lab) 46413 [facility] Test # Pap Age age 21+ (Out Order) CPT-26964 Hemoglobin 51651 CPT-15536 Miesha Arguelloy (Out Order) 10/23 CPT-65623 GTT 2 Hour CPT-10757 Urine Dip Auto 77185 CPT-32830 Urine Dip Manual 98431 08/23 PU Pelvic Ultrasound CPT-61297 Urine Dip Auto 83655 CPT-95097 Urine Dip Auto 35374 CPT-27928 Urine Dip Auto CPT-81481 Urine Dip Auto CPT-68697 Group B Strep (Outside Lab) CPT-31028 Miesha Arguelloy (Out Order) 07/26 CPT-09458 Urine Dip Auto CPT-12471 Venipuncture CPT-92231 Urine Dip Manual CPT-82219 GTT 2 Hour CPT-79322 Urine Dip Auto CPT II 1000F #114: Tobacco use assessed 2 CPT II 1036F #114: Current tobacco non-user CPT-G8457 #115: Current tobacco non-user CPT-97793 Urine Dip Auto OB US GEN Ultrasound CPT II 1000F #114: Tobacco use assessed 2 CPT II 1036F #114: Current tobacco non-user CPT-G8457 #115: Current tobacco non-user CPT-55150 Urine Dip Manual CPT II 1000F #114: Tobacco use assessed 2 CPT II 1036F #114: Current tobacco non-user CPT-G8457 #115: Current tobacco non-user CPT-96466 Urine Dip Manual CPT-19991 G.[facility]. Chly (Out Order) 03/30 CPT-77370 Pap (Out Order) CPT-50515 Venipuncture CPT-85777 Hemoglobin CPT-19457 Urine Dip Auto 61703 Panel (Outside Lab) CPT-36645 HIV Antibody (Out Order) 201 02/23/06 CPT-23775 Urine Culture (Outside Lab) Vital Signs Date Name Value Unit Description BMI (Body Mass Index) 32.56 kg/m2 Bod y Mass Index (Ratio) BP Diastolic 86 mm[Hg] blood pressu re, diastolic BP Systolic 125 mm[Hg] blood pressur e, systolic Heart Rate 76 /min pulse rate Weight Measured 201 [lb_av] weight E& M Weight Measured 201 [lb_av] weight E& M Respiratory Rate 20 /min respirat ory rate E&M Body Temperature 98.5 [degF] temperat ure E&M Body Temperature 36.94 Precious temperat ure in centigrade E&M BSA (Body Surface Area) 1.94 b orin surface area Weight Measured 80.45 kg weight in kilograms E&M Height 167.64 cm height in cent imeters E&M Height 66 [in_us] height E&M Immunizations No information available. Advance Directives No information available.
--- OUTSIDE RECORDS SUMMARY | 2025-01-29 14:34 | XMS_ITS | Clinical Summary ---
Author Organization [facility] Address [address] [place] [address] Phone Care Team Providers Care Plastic Duplicator Name Role Phone Unavailable Primary Care Provider Unavailabl e Allergies Active Allergy Reactions Criticality Noted Date Comments Propoxyphene N-Acetaminophen Rash Medium Medications * This document contains information received from the source organization and may not represent a complete record from that organization. venlafaxine (EFFEXOR) 50 mg Oral Tablet Take 1 tablet by mouth 2 times daily. 60 tablet 1 4 Active Additional Information Patient not taking.Reason: Pt electing to not take the medication, Reported on 11/05/2023 dextroamphetami ne-amphetamine (ADDERALL) 30 mg Oral Tablet Take 30 mg by mouth daily. Active predniSONE (DELTASONE) 10 mg Oral TabletIndicatio ns:Spasm of muscle, back 40mg for 3 days, 20 mg for 3 days, 10mg for 3 days 21 Tablet 4 Active Active Problems Problem Noted Date Diagnosed Date Anxiety disorder 08/18/2013 Resolved Problems Problem Noted Date Diagnosed Date Resolved Date Episiotomy pain 09/05/2011 08/18/2013 Immunizations Immunization Administration Dates Next Due Tdap 09/04/2011 Surgical History Surgery Date Site/Laterality Comments DENTAL SURGERY Tooth inplant 2003 WISDOM TOOTH EXTRACTION 2003 Medical History Medical History Date Comments ADHD (attention deficit hyperactivity disorder) Depression Arthritis Anxiety Family History Medical History Relation Name Comments High Blood Pressure Father Diabetes Maternal Aunt Cancer Maternal Grandfather Early Maternal Grandfather Heart Disease Maternal Grandmother High Blood Pressure Maternal Grandmother High Cholesterol Maternal Grandmother Other Maternal Grandmother Emphyse ma, COPD Diabetes Paternal Aunt 1 Other Paternal Aunt 2 Hepatitis Cancer Paternal Grandfather Lung Early Paternal Grandfather Age 67 Stroke Paternal Grandmother Diabetes Paternal Uncle Breast Cancer Neg Hx Cervical Cancer Neg Hx Ovarian Cancer Neg Hx Uterine Cancer Neg Hx Vaginal Cancer Neg Hx Relation Name Status Comments Father Alive Maternal Aunt Alive Maternal Grandfather Maternal Grandmother Alive Mother Alive Paternal Aunt 1 Alive Paternal Aunt 2 Paternal Grandfather Paternal Grandmother Alive Paternal Uncle Alive Social History Tobacco Use Types Packs/Day Years Used Date Smoking Tobacco: Never Alcohol Use Standard Drinks/Week Comments No 0 (1 standard drink = 0.6 oz pur e alcohol) Comments No Sex and Gender Information Value Date Recorded Sex Assigned at Not on file Legal Sex Female 11:29 PM EDT Gender Identity Not on file Sexual Orientation Not on file Obstetrics History Para Term AB IAB SAB Ectopic Multiple Livin g Live Births 2 2 1 2 1 Date Outcome GA Total Labor Labor/2nd/3rd Weight Sex Type Anes PTL Gaye A1 A5 Name Clin Term 2011 Para 7 lb 13.4 oz (3.555 kg) M Vag-S pont Epidur al N Livin g 8 [address] PER[address]UE THER BABY A Lane Lucas IV, MD Delivery Location:[facility] Last Filed Vital Signs Vital Sign Reading Time Taken Comments Blood Pressure 138/94 08/20/2015 8:10 PM EDT Pulse 87 08/20/2015 8:10 PM EDT Temperature 36.9 C (98.5 F) 08/20/2015 8:10 PM EDT Respiratory Rate 18 08/20/2015 8:10 PM EDT Oxygen Saturation 100% 08/20/2015 8:10 PM EDT Inhaled Oxygen Concentration - - Weight 90.7 kg (200 lb) 08/20/2015 8:10 PM EDT Height 165.7 cm (5' 5.25 ) 08/20/2015 8:10 PM ED T Body Mass Index 33.03 08/20/2015 8:10 PM EDT Plan of Treatment Health Maintenance Due Date Last Done Comments Annual Wellness Exam 1985 Hepatitis B Vaccine (1 of 3 - 19+ 3-dose series) 2001 HPV/Pap Cotest 02/13/2012 Cervical Cancer Screening 01/27/2014 Pap Smear 01/27/2014 01/27/2011 DTaP/TDaP/Td (2 - Td or Tdap) 09/03/2021 09/04/2011 Breast Cancer Screening 2022 COVID-19 Vaccine (1 - 2024-2 6 season) 2024 Influenza Vaccine (#1) 2024 Meningococcal B Vaccine Aged Out No l onger eligible based on patient's age to complete this topic Pneumococcal Vaccine 0-49 Aged Out No longer eligible based on patient's age to complete this topic Insurance [employer] [facility] * Guarantor: Monie Finnegan Account Type Relation to Patient Date of Phone Billing Address Personal/Family Self 1980 [address] [place] [address] Advance Directives For more information, please contact: [phone] * Full Code (Latest Code Status on File) Date Activated Date Inactivated Comments 09/01/2011 8:39 AM 09/03/2011 9:02 PM
== END 2025-01-29 23:59 | disposition home or self-care (01) ==
LOC: RAD 14:27
PROVIDERS: PCP Nurse Practitioner; Visit Provider Obstetrics & Gynecology
DX: R92.2 Inconclusive mammogram (principal); R92.321 Mammographic fibroglandular density, right breast
CPT/HCPCS: 76641; 77062; 77066; G0279